=== PATIENT | female | born 1950 | race Hispanic/Latino ===

== ENCOUNTER → 2023-12-04 | Outpatient (CLI) | payer OTHER ==
[2023-12-04 21:41] VITALS: PULSE 57; RESP 12
[2023-12-04 22:20] VITALS: PULSE 55; RESP 14
[2023-12-04 22:34] VITALS: PULSE 83; RESP 16
[2023-12-04 22:57] VITALS: PULSE 64; RESP 16
[2023-12-04 23:33] VITALS: PULSE 60; RESP 20
[2023-12-05] VITALS (10 sets, daily range): PULSE 53–62; RESP 12–18
== END | disposition home or self-care (01) ==
LOC: SLP 10:00
PROVIDERS: ATTEND Internal Medicine
DX: G47.33 Obstructive sleep apnea (adult) (pediatric) (principal); R40.0 Somnolence
CPT/HCPCS: 95810

== ENCOUNTER → 2023-12-07 | Outpatient (CLI) | payer OTHER ==
[2023-12-07 21:54] VITALS: PULSE 54; RESP 14
[2023-12-07 22:30] VITALS: PULSE 52; RESP 16
[2023-12-07 23:00] VITALS: PULSE 48; RESP 16
[2023-12-07 23:30] VITALS: PULSE 50; RESP 18
[2023-12-08] VITALS (11 sets, daily range): PULSE 40–54; RESP 4–16
== END | disposition home or self-care (01) ==
LOC: SLP 19:59 → EDUNIT# 01-20 20:30
PROVIDERS: ATTEND Internal Medicine
DX: G47.33 Obstructive sleep apnea (adult) (pediatric) (principal); R40.0 Somnolence
CPT/HCPCS: 95811

== ENCOUNTER → 2024-07-22 | Outpatient (CLI) | payer OTHER ==
[~2024-07-22] MED LIST: AMOX1TAB16 PO; MUPI22OI2 TP
== END | disposition home or self-care (01) ==
LOC: RAH 07:58
PROVIDERS: ATTEND Internal Medicine Cardiovascular Disease
DX: R06.02 Shortness of breath (principal)

== ENCOUNTER → 2024-09-19 | Outpatient (CLI) | payer OTHER ==
[~2024-09-19] MED LIST changes: -AMOX1TAB16 PO; +IOHEXOL 350 MG/ML 100ML INFUS..BTL IV ONE; -MUPI22OI2 TP
--- NOTE | 2024-09-19 11:59 | HMCIMG ---
CT CARDIAC ANGIO W/CONT. CCTA HISTORY: Shortness of breath COMPARISON: None TECHNIQUE: Multiple sequential axial images of the chest were obtained along with the CT angiogram of the chest study. Patient was given 100 cc of Omnipaque through intravenous route. FINDINGS: There is no evidence of pulmonary nodule or parenchymal disease. No pleural effusion or pericardial effusion is seen. There is no evidence of pneumothorax. There are normal size mediastinal and hilar lymph nodes. The heart is not enlarged. Degenerative changes of the thoracolumbar spine are present. IMPRESSION: 1. No evidence of pulmonary nodule or effusion is seen. Please see CT angiogram report of coronary arteries.
== END | disposition home or self-care (01) ==
LOC: RAH 08:20
PROVIDERS: ATTEND Internal Medicine Cardiovascular Disease
DX: R06.02 Shortness of breath (principal); M47.815 Spondylosis without myelopathy or radiculopathy, thoracolumbar region
CPT/HCPCS: 75574; Q9967

== ENCOUNTER 2024-10-10 17:39 | Emergency (ER) | payer OTHER ==
[~2024-10-10] VITALS: Ht 157.5 cm; Wt 68.5 kg
[2024-10-10 19:02] VITALS: BP 124/56; PULSE 78; RESP 20; TEMP 98.8; O2SAT 98
[2024-10-10] MEDS ORDERED: AMOX1TAB16 PO (19:12)
--- NOTE | 2024-10-10 19:12 | ERN ---
General Chief Complaint: Finger Injury Stated Complaint: FINGER INJURY Time Seen by MD: 17:40 Time Seen by Midlevel: 17:40 Source: patient History of Present Illness Initial Comments Patient Is a 73-year-old female presenting to the emergency department with left finger swelling and redness. Patient states she accidentally hit her left thumb on Sunday two days ago. She was seen by her primary care doctor who recommended she report to the ER for removal of the left now since there is some swelling and redness to the area. An x-ray was performed earlier this week by her primary care doctor that reveals an avulsion fracture. A finger splint was placed. Home Meds Active Scripts Amoxicillin/Potassium Clav (Amox Tr-K Clv 875-125 mg Tab) 875 Mg-125 Mg Tablet, 1 EACH PO BID for 7 Days, #14 TAB 0 Refills Prov:LOULOU MERRILL 10/10/24 Past Medical History Past Medical History: Diabetes-Type II, Hypertension Past Surgical History: Hysterectomy, Other Surgical History Other: EYE ROS Dictation CONSTITUTIONAL: Negative except for HPI HEAD/FACE: Negative except for HPI EENT: Negative except for HPI RESPIRATORY: Negative except for HPI GASTROINTESTINAL/ABDOMINAL: Negative except for HPI GENITOURINARY: Negative except for HPI MUSCULOSKELETAL: Negative except for HPI INTEGUMENTARY: Negative except for HPI NEUROLOGICAL/PSYCH: Negative except for HPI HEMATOLOGIC/LYMPHATIC: Negative except for HPI All Systems Negative, Except as noted above. 13 point review of systems assessed and all negative except for above. Physical Exam Physical Exam Dictation PHYSICAL EXAM: GENERAL: alert,, awake oriented x 3 HEENT: EOMI, Sclera non icteric, moist mucosa NECK: Supple, no JVD, trachea midline LUNGS: Clear breath sounds bilaterally. No wheezes HEART: Regular rate and rhythm. Normal S1 and S2, without murmurs ABD: Abdomen soft, nontender. Bowel sounds present EXT: No clubbing or cyanosis,tenderness to the distal aspect of the left 1st digit. There is some surrounding erythema with swelling. The nail appears to be intact NEURO: Alert and oriented to person, follows commands MDM MDM: Patient Is a 73-year-old female presenting to the emergency department with left finger swelling and redness. Patient states she accidentally hit her left thumb on Sunday two days ago. She was seen by her primary care doctor who recommended she report to the ER for removal of the left now since there is some swelling and redness to the area. An x-ray was performed earlier this week by her primary care doctor that reveals an avulsion fracture. A finger splint was placed. On physical examination patient has tenderness to the distal aspect of the left 1st digit. There is some surrounding erythema with swelling. The nail appears to be intact. I offered to remove the nail however patient is declining. They would just like oral antibiotics and outpatient follow up. Patient was given a longer finger splint and some gauze to take home. No need for x-ray at this time as she was able to provide a report that shows an avulsion fracture. The patient was given her 1st dose of Augmentin in the emergency department and will be sent home with a prescription for Augmentin. Differential diagnosis: Paronychia, cellulitis, abscess There are no social concerns with this patient. Prescription drug management Prescriptions will include: Augmentin and mupirocin Medical management and examination interpretation discussions were had by me with other qualified healthcare professionals as indicated for the patient's care. ED Course Orders Procedure Category Date Status Time Finger(S) 2+Vws Lt RAD 10/10/24 Logged 18:41 Amox/Clav 875/125mg PHA 10/10/24 In Process Tab (Augmentin 875-1 19:30 Current Medications Medications (Trade) Dose Ordered Sig/Graciela Route PRN Reason Start Time Stop Time Status Last Admin Dose Admin Amoxicillin/ Clavulanate Potassium (Augmentin 875-125 Tablet) 1 each ONCE ONCE PO 10/10/24 19:30 10/10/24 19:31 Vital Signs Date Time Temp Pulse Resp B/P (MAP) Pulse Ox O2 Delivery O2 Flow Rate FiO2 10/10/24 19:02 98.8 78 20 124/56 98 Room Air* 0 21 10/10/24 18:30 98.1 65 20 142/55 97 Room Air 0 DX & DISP Disposition: Discharge Departure Impression: Primary Impression: Paronychia of finger Condition: Stable Scripts Mupirocin (Mupirocin Ointment) 2 % Oint 1 APPL TP TID for 5 Days, #15 GM 0 Refills apply to affected area(s) Prov: LOULOU MERRILL 10/10/24 Amoxicillin/Potassium Clav (Amox Tr-K Clv 875-125 mg Tab) 875 Mg-125 Mg Tablet 1 EACH PO BID for 7 Days, #14 TAB 0 Refills Prov: LOULOU MERRILL 10/10/24 Referrals: SALVADOR JEFFRIES MD (PCP) Time of Disposition: 19:12 I have reviewed the case, and I agree with, Diagnosis and Plan I performed the substantive portion of the visit. I have reviewed and pers onally made and approve the management plan that is documented in the note by myself or the ISAAK. I acknowledge for responsibility for the patient's management plan. LOULOU MERRILL Oct 10, 2024 19:12
[2024-10-10] MEDS: AMOX/CLAV 875/125MG TAB PO ONE (19:40)
[2024-10-10] MEDS ORDERED: MUPI22OI2 TP (19:44)
== END 2024-10-10 19:48 | disposition home or self-care (01) ==
LOC: EDH 17:39
DX: L03.012 Cellulitis of left finger (principal); E11.9 Type 2 diabetes mellitus without complications; I10 Essential (primary) hypertension; Z90.710 Acquired absence of both cervix and uterus; Z79.899 Other long term (current) drug therapy; Z98.890 Other specified postprocedural states
CPT/HCPCS: 29130; 99283

== ENCOUNTER 2025-08-05 11:51 | Emergency (ER) | payer OTHER ==
[~2025-08-05] VITALS: Ht 160 cm; Wt 68.0 kg
[~2025-08-05 11:51] MED LIST changes: +AMOX1TAB16 PO; -IOHEXOL 350 MG/ML 100ML INFUS..BTL IV ONE; +MUPI22OI2 TP
--- NOTE | 2025-08-05 12:06 | ERN ---
ED Note History of Present Illness Stated Complaint: FALL Chief Complaint: Mechanical Fall Time Seen by MD: 12:02 Time Seen by Midlevel: 12:05 Dictation: 74-year-old female coming in with complaints of lower back pain and left hip pain status post fall three weeks ago. Patient states he fell back, denies any blood thinners, no loss of consciousness. Patient was seen by PCP on Sunday and was placed on tramadol however states she is still her pain. Patient is ambulatory without any assistance. Allergies: Coded Allergies: No Known Drug Allergies (Unverified Allergy, Unknown, 10/10/24) Home Meds Active Scripts Mupirocin (Mupirocin Ointment) 2 % Oint, 1 APPL TP TID for 5 Days, #15 GM 0 Refills apply to affected area(s) Prov:LOULOU MERRILL PAC 10/10/24 Amoxicillin/Potassium Clav (Amox Tr-K Clv 875-125 mg Tab) 875 Mg-125 Mg Tablet, 1 EACH PO BID for 7 Days, #14 TAB 0 Refills Prov:LOULOU MERRILL PAC 10/10/24 Past Medical History Past Medical History: Diabetes-Type II, Glaucoma, High Cholesterol, Hypertension Surgical History: Appendectomy, Hysterectomy Surgical History Other: RT EYE CORNEAL SX, RT KNEE SX Review of System Dictation Constitutional: Negative for fever,chills, and weight loss Eyes: Negative for injury, pain,redness, and discharge ENT: Negative for injury,pain or swelling Cardiovascular: Negative for chest pain, palpitations, and edema Respiratory: Negative for shortness of breath, cough, and wheezing, Abdomen/GI: Negative for abdominal pain, nausea, vomiting, diarrhea, and constipation Back: Complaining of lower back pain and then left hip pain : Negative for injury, bleeding and discharge MS/Extremity: Negative for injury and deformity, Skin: Negative for rash, and discoloration Neuro: Negative for headache, weakness, numbness, tingling, and seizure Psych: Negative for suicide ideation, homicidal ideation, and hallucinations Review of Systems: was completed Initial Vital Sign VS Vital Signs Date Time Temp Pulse Resp B/P (MAP) Pulse Ox O2 Delivery O2 Flow Rate FiO2 08/05/25 11:52 97.9 64 18 181/65 98 Room Air 0 08/05/25 14:25 21 Physical Exam Dictation General: awake, alert, NAD Head/Face: Normocephalic, atraumatic Eyes: PERRL, EOMI, vision at baseline ENT: oral cavity clear, TMs clear, no signs of infection Neck: Trachea midline, supple, no nuchal rigidity Cardiovascular: RRR, normal S1/S2, No MRGs, no JVD Respiratory: CTAB, no respiratory distress, No rales or wheezes Abdomen: Soft, non-tender, non-distended, normal bowel sounds, no guarding or rebound. Skin: Warm, dry, normal turgor, no rash MS/Extremity: Pulses equal, no cyanosis, neurovascular intact, FROM Neuro: COAx4, GCS 15, strength 5/5, CN 2-12 intact, normal cerebellar exam, normal gait, Psych: Normal behavior, mood, and affect normal Results (Laboratory/Radiology) X-RAY Comment: [place] [address] [address] IMAGING REPORT Signed PATIENT: JOSE HIGH MR#: [id number] : 1950 SEX: F AGE: 74 LOCATION: [facility] ORDER 04 STATUS: [facility] REPORT#: [id number] SERVICE 01 REASON: fall ORDERING PHYSICIAN: ALBERTINA LICONA AUDIOVISUAL LIBRARIAN PROCEDURE: HIP U 2V L - HIP UNILAT 2-3VW LEFT EXAM: CR left Hip, 2 View. CLINICAL HISTORY: fall COMPARISON: None provided. FINDINGS: BONES: No acute fracture or aggressive appearing osseous lesion. JOINTS: No dislocation. 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 SOFT TISSUES: The soft tissues are unremarkable. IMPRESSION: 1. No acute osseous injury. /[place] DICTATED BY: GIULIANO BASSETT Jr., MD DATE: 08/05/251455 ELECTRONICALLY SIGNED BY: GIULIANO BASSETT Jr., MD DATE: 08/05/251455 [place] [address] [place] [address] IMAGING REPORT Signed PATIENT: JOSE HIGH MR#: [id number] : 1950 SEX: F AGE: 74 LOCATION: EDH ORDER 04 STATUS: [facility] REPORT#: [id number] SERVICE 01 REASON: fall ORDERING PHYSICIAN: ALBERTINA LICONA AUDIOVISUAL LIBRARIAN PROCEDURE: CXR1VW - CHEST 1VW EXAM: CR Chest, 1 View. CLINICAL HISTORY: fall COMPARISON: None provided. FINDINGS: LUNGS: There is no mass, infiltrate, or acute pulmonary abnormality. PLEURAL SPACES: No pleural effusion or pneumothorax. MEDIASTINUM: The cardiomediastinal silhouette is within normal limits. BONES: No aggressive appearing osseous lesion seen. IMPRESSION: No acute cardiopulmonary pathology is evident. /[place] DICTATED BY: GIULIANO BASSETT Jr., MD DATE: 08/05/251454 ELECTRONICALLY SIGNED BY: GIULIANO BASSETT Jr., MD DATE: 08/05/251454 [place] [address] [address] IMAGING REPORT Signed PATIENT: JOSE HIGH MR#: [id number] : 1950 SEX: F AGE: 74 LOCATION: ED ORDER 04 STATUS: [facility] REPORT#: [id number] SERVICE 01 REASON: fall ORDERING PHYSICIAN: ALBERTINA LICONA AUDIOVISUAL LIBRARIAN PROCEDURE: LUMB 4VWS - LUMBAR SPINE 4+VWS EXAM: CR Lumbar Spine, 5 View. CLINICAL HISTORY: fall COMPARISON: None provided. FINDINGS: The lumbar alignment is within normal limits. There is straightening of the lumbar spine that may reflect paraspinal muscle spasm. There is lumbar spondylosis evident by anterior osteophytes and syndesmophytes at multiple levels. There is mild multilevel degenerative disc disease, more pronounced at L3-L4. Vertebral body heights are maintained without displaced fracture. There is no listhesis. IMPRESSION: 1. No acute osseous injury. 2. Mild lumbar spondylosis and multilevel degenerative disc disease. /[place] DICTATED BY: GIULIANO BASSETT Jr., MD DATE: 08/05/251458 ELECTRONICALLY SIGNED BY: GIULIANO BASSETT Jr., MD DATE: 08/05/251458 ED Course ED Course Orders Procedure Category Date Status Time Chest 1vw RAD 08/05/25 Resulted 12:02 Lumbar Spine 4+Vws RAD 08/05/25 Resulted 12:02 Hip Unilat 2-3vw Left RAD 08/05/25 Resulted 12:02 Vital Signs Date Time Temp Pulse Resp B/P (MAP) Pulse Ox O2 Delivery O2 Flow Rate FiO2 08/05/25 14:25 97.9 62 18 161/67 98 Room Air* 0 21 08/05/25 11:52 97.9 64 18 181/65 98 Room Air 0 Medical Decision Making MDM MDM: 74-year-old female coming in with complaints of lower back pain and left hip pain status post fall three weeks ago. Patient states he fell back, denies any blood thinners, no loss of consciousness. Patient was seen by PCP on Sunday and was placed on tramadol however states she is still her pain. Patient is ambulatory without any assistance. X-rays of the hip, lower back and chest showed no acute finding. Discussed with the patient she is to take medication that was prescribed on Sunday for pain, she can rest, apply ice and heat as needed follow up with PCP in the next couple of days. Both verbalized any complaints or questions. Differential diagnosis: L-spine injury, hip fracture, hip contusion, muscle strain Rationale: Tests considered and ordered secondary to shared decision making include: Previous outside records reviewed: Old ER visits. Risk of complication and/or morbidity or mortality of patient management: None Medications-Per medication reconciliation Need for hospitalization: Patient does not meet criteria for hospitalization. Need for emergency major/minor surgery: No There are no social concerns with this patient. Prescription drug management Prescriptions will include symptomatic care Patient's prior external medical records from other ER visits were reviewed by me as indicated. Prior testing and results from previous visits were reviewed. Prior tests were taken into account with medical decision making and resource utilization, independent historian/historians were used to obtain complete medical history. I independently interpreted the test that were performed, results were reviewed by me and considered findings on radiology if ordered. Medical management and examination interpretation discussions were had by me with other qualified healthcare professionals as indicated for the patient's care. DX & DISP Disposition: Discharge Departure Impression: Primary Impression: Back pain Additional Impressions: Hip pain, Contusion Condition: Stable Additional Instructions: Your x-ray of the back, hip and chest show no broken bones. Continue taking the medication that was given to you by your primary doctor on Sunday. Follow up with them in the next week. Return to the hospital if you develop any bowel or urinary incontinence, numbness or tingling to your extremities. He has ice or heat as needed to help with the back pain. Referrals: SALVADOR JEFFRIES MD (PCP) Time of Disposition: 14:05 I have reviewed the case, and I agree with, Diagnosis and Plan ALBERTINA LICONA Aug 05, 2025 12:06 PADMA GALE DO Aug 05, 2025 15:58
--- NOTE | 2025-08-05 13:56 | HMCIMG ---
EXAM: CR Chest, 1 View. CLINICAL HISTORY: fall COMPARISON: None provided. FINDINGS: LUNGS: There is no mass, infiltrate, or acute pulmonary abnormality. PLEURAL SPACES: No pleural effusion or pneumothorax. MEDIASTINUM: The cardiomediastinal silhouette is within normal limits. BONES: No aggressive appearing osseous lesion seen. IMPRESSION: No acute cardiopulmonary pathology is evident. /[place]
--- NOTE | 2025-08-05 13:57 | HMCIMG ---
EXAM: CR left Hip, 2 View. CLINICAL HISTORY: fall COMPARISON: None provided. FINDINGS: BONES: No acute fracture or aggressive appearing osseous lesion. JOINTS: No dislocation. 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 SOFT TISSUES: The soft tissues are unremarkable. IMPRESSION: 1. No acute osseous injury. /[place]
--- NOTE | 2025-08-05 14:00 | HMCIMG ---
EXAM: CR Lumbar Spine, 5 View. CLINICAL HISTORY: fall COMPARISON: None provided. FINDINGS: The lumbar alignment is within normal limits. There is straightening of the lumbar spine that may reflect paraspinal muscle spasm. There is lumbar spondylosis evident by anterior osteophytes and syndesmophytes at multiple levels. There is mild multilevel degenerative disc disease, more pronounced at L3-L4. Vertebral body heights are maintained without displaced fracture. There is no listhesis. IMPRESSION: 1. No acute osseous injury. 2. Mild lumbar spondylosis and multilevel degenerative disc disease. /[place]
[2025-08-05 14:25] VITALS: BP 161/67; PULSE 62; RESP 18; TEMP 97.9; O2SAT 98
== END 2025-08-05 14:30 | disposition home or self-care (01) ==
LOC: EDH 11:51
DX: S70.02XA Contusion of left hip, initial encounter (principal); M54.50 Low back pain, unspecified; E11.9 Type 2 diabetes mellitus without complications; E78.00 Pure hypercholesterolemia, unspecified; I10 Essential (primary) hypertension; Z90.710 Acquired absence of both cervix and uterus; Z90.49 Acquired absence of other specified parts of digestive tract; W18.39XA Other fall on same level, initial encounter; Y93.89 Activity, other specified; Y92.89 Other specified places as the place of occurrence of the external cause; Y99.8 Other external cause status
CPT/HCPCS: 71045; 72110; 73502; 99284